=== PATIENT | female | born 1980 | race African-American/Black ===

== ENCOUNTER 2016-10-28 17:31 | Emergency (ER) | payer BC, OTHER ==
[~2016-10-28] VITALS: Ht 167.6 cm; Wt 81.6 kg
[~2016-10-28 17:31] MED LIST: BIOTIN2500 MCG PO; CIPROFLOXACIN500 M2 ORAL; FERROUS SULFAT325 MG ORAL; FIORICET1 EA ORAL; FISH OIL 1,0001 EAC5 ORAL; MACROBID100 MG ORAL
[2016-10-28 17:50] VITALS: BP 157/79
[2016-10-28] MEDS ORDERED: Lidocaine 1% 10mg/ml/EPI 0.01mg/ml 50ml INJ ONE (18:15)
[2016-10-28 20:16] VITALS: BP 139/81
[2016-10-28 21:19] VITALS: BP 139/81
[2016-10-28] MEDS ORDERED: Clindamycin 150mg cap ORAL STA (21:19)
[2016-10-28] MEDS ORDERED: TRAMADOL HCL50 MG ORAL (21:22)
--- NOTE | 2016-10-29 04:30 | Emergency Room Report ---
History of Present Illness General Chief Complaint: Skin Rash/Abscess Source: Patient Present Illness HPI Patient with boil on L thigh. Several days. Seen in urgent care yesterday and given IM shot and Rx for clinda. Not fill rx. Though bitten by spider. Worsened erythema. No drainage. Tet UTD. No fevers, chills, joint pain, NVD, dysuria, COLES, other rashes. Occupational exposure. 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 Nursing Documentation: PMH: Agreed, PSxH: Agreed Nursing Documentation-PMH Past Medical History: No Stated History Review of Systems All Other Systems: negative except mentioned in HPI Physical Exam Vital Signs Date Time Temp Pulse Resp B/P Pulse Ox O2 Delivery O2 Flow Rate FiO2 10/28/16 17:38 98.2 68 20 157/79 100 Room Air Sp02 EP Interpretation: reviewed, normal General Appearance: well appearing, no apparent distress Head: normocephalic, atraumatic Eyes: bilateral eye PERRL, bilateral eye normal inspection ENT: hearing grossly normal, normal voice Neck: full range of motion, supple Respiratory: no respiratory distress, speaking full sentences Cardiovascular #1: regular rate, rhythm Cardiovascular #2: 2+ radial (L) Rectal: normal exam Musculoskeletal: digits/nails normal, gait/station normal, normal range of motion, no calf tenderness Neurologic: alert, normal gait, grossly normal Psychiatric: mood/affect normal Skin: other - erythema extending beyond justin from yesterday with central skin deterioration and fluctuance Procedures Incision and Drainage Incision and Drainage : Consent: Verbal Site: L thigh Blade Size: 11 I & D Procedure: betadine prep, sterile drapes applied, sterile dressing applied, gauze wick placed Wound Location: lower extremity Wound's Depth, Shape: superficial Wound Explored: contaminated - pus obtained and drained Anesthesia: Lidocaine w/ Epi Volume Anesthetic (ccs): 3 Splint Applied?: No Sling Applied?: No Patient Tolerated: Well Complications: None Medical Decision Making Diagnostic Impression: Primary Impression: Abscess ER Course Abscess on L thigh. Needs I and D. Not start clinda. Will start clinda now. I and D. Pus obtained. Tolerated well. Packed. Patient stable for outpatient observation and treatment. Needs drain re-eval 2 days and repacking or removal. Last Vital Signs Date Time Temp Pulse Resp B/P Pulse Ox O2 Delivery O2 Flow Rate FiO2 10/28/16 21:19 98.2 84 15 139/81 100 Room Air Status: improved Disposition: HOME, SELF-CARE Condition: Improved Scripts Tramadol Hcl* (ULTRAM*) 50 Mg Tablet 50 MG ORAL Q6H Y for For Pain, #10 TAB 0 Refills Prov: Praful Shaw M.D. 10/28/16 Departure Forms: Return to Work Return to Work in (Days): 3 Return to Work Date: Oct 31, 2016 Patient Instructions: Abscess Additional Instructions: Return or go to your MD in 2 days to have the packing replaced or removed. Take the antibiotics (clindamycin). Take advil for the pain. Praful Shaw M.D. Oct 29, 2016 04:30
== END 2016-10-28 21:19 | disposition home or self-care (01) ==
LOC: EMR 19:20
DX: L02.416 Cutaneous abscess of left lower limb (principal)
CPT/HCPCS: 10060